=== PATIENT | female | born 1980 | race Two or more races ===

== ENCOUNTER 2018-08-29 18:02 | Emergency (ER) | payer BC ==
[2018-08-29] MEDS ORDERED: PHENAZOPYRIDINE HCL 200 MG TABLET PO ONE (18:37)
--- NOTE | 2018-08-29 18:37 | ER Document Report ---
HPI - HPI Patient complains to provider of: pain with void Time Seen by Provider: 08/29/18 18:30 Onset: Other Onset/Duration: Persistent Quality of pain: Burning Pain Level: 3 Context: Patient presents emergency department with complaints of UTI. Reports she has had extreme discomfort since Sunday. She reports pain at the end of her urine stream reports foul smell more concentrated urine. Denies vaginal discharge. Reports she has a history of UTIs and has had pyelonephritis. She was evaluated by her primary care provider Sunday they did a urine specimen but sent off a urine culture because the UA looked okay. She reports she has been taking cranberry pills Motrin and nothing is helping with the pain, she tried to call her primary care provider this week but was unsuccessful. She reports they are referring her to a urologist. She reports she used to be on Macrobid for chronic UTIs after she had sex. She denies fever diarrhea but reports some vomiting last week. None recently.. Associated Symptoms: None Exacerbated by: Other - voiding Relieved by: Denies Similar symptoms previously: Yes Recently seen / treated by doctor: Yes - REPRODUCTIVE Reproductive: DENIES: : Past Medical History - General Information source: Patient Last Menstrual Period: 2012 - Social History Smoking Status: Current Every Day Smoker Cigarette use (# per day): Yes Frequency of alcohol use: Occasional Drug Abuse: None Family History: None Patient has suicidal ideation: No Patient has homicidal ideation: No - Past Medical History Cardiac Medical History: Denies: Hx Coronary Artery Disease, Hx Heart Attack, Hx Hypertension Pulmonary Medical History: Denies: Hx Asthma, Hx Bronchitis, Hx COPD, Hx Pneumonia Neurological Medical History: Denies: Hx Cerebrovascular Accident, Hx Seizures Renal/ Medical History: Reports: Other - pyelonephritis Musculoskeletal Medical History: Denies Hx Arthritis Past Surgical History: Reports: Hx Breast Surgery, Hx Gynecologic Surgery - LEEP, Other - tummy tuck - Immunizations Hx Diphtheria, Pertussis, Tetanus Vaccination: Yes Vertical Provider Document - CONSTITUTIONAL Agree With Documented VS: Yes Exam Limitations: No Limitations General Appearance: WD/WN, No Apparent Distress - INFECTION CONTROL TRAVEL OUTSIDE OF THE [place] IN LAST 30 DAYS: No - HEENT HEENT: Atraumatic, Normocephalic - NECK Neck: Normal Inspection, Supple. negative: Lymphadenopathy-Right - RESPIRATORY Respiratory: Breath Sounds Normal, No Respiratory Distress - CARDIOVASCULAR Cardiovascular: Regular Rate, Regular Rhythm - GI/ABDOMEN Gastrointestinal: Abdomen Soft, Abdomen Non-Tender - BACK Back: Normal Inspection. negative: CVA Tenderness-Right, CVA Tenderness-Left - MUSCULOSKELETAL/EXTREMETIES Musculoskeletal/Extremeties: ZULEYMA WELLS - NEURO Level of Consciousness: Awake, Alert, Appropriate Motor/Sensory: No Motor Deficit - DERM Integumentary: Warm, Dry Course - Re-evaluation Re-evalutation: 08/29/18 19:11 UA with positive leukocytes. Will treat with Macrobid and Pyridium. Patient instructed on urine culture pending. Instructed to follow-up with the primary care and urology as scheduled. She verbalized understanding all instructions. Dictation of this chart was performed using voice recognition software; therefore, there may be some unintended grammatical errors. Discharge - Discharge Clinical Impression: Pain on voiding UTI (urinary tract infection) Qualifiers: Urinary tract infection type: site unspecified Hematuria presence: with hematuria Qualified Code(s): N39.0 - Urinary tract infection, site not specified Condition: Stable Disposition: HOME, SELF-CARE Instructions: Nitrofurantoin ([facility]), Urinary Anesthetic Agent ([facility]), Urinary Tract Infection ([facility]) Additional Instructions: *You have been evaluated for pain while voiding, UTI *Take medication as prescribed *Push fluids *Follow up with your primary care provider within one week for recheck *Plan urine recheck in one week *Return to ED for worsening condition, changes, needs Prescriptions: Nitrofurantoin/Nitrofuran Mac [Macrobid 100 mg Capsule] 100 mg PO BID #20 capsule Phenazopyridine HCl [Pyridium 200 mg Tablet] 200 mg PO TID #15 tablet Referrals: JOSE LUIS ANDRADE, ODETTE [NURSE PRACTITIONER] - Follow up as needed
[2018-08-29 18:49] LABS: APPEARANCE,URINE CLOUDY; BILIRUBIN,URINE NEGATIVE (NEGATIVE); COLOR,URINE YELLOW; GLUCOSE, URINE NEGATIVE (NEGATIVE); KETONES,URINE NEGATIVE (NEGATIVE); LEUKOCYTE ESTERASE,URINE LARGE (NEGATIVE); NITRITE,URINE NEGATIVE (NEGATIVE); PROTEIN,URINE 30 mg/dL (NEGATIVE); URINE SPECIFIC GRAVITY 1.016; UROBILINOGEN,URINE NEGATIVE mg/dL (<2.0)
[2018-08-29] MEDS ORDERED: NITROFURANTOIN MONOHYD/M-CRYST 100 MG CAPSULE PO ONE (19:12)
== END 2018-08-29 19:45 | disposition home or self-care (01) ==
LOC: ER 18:02
DX: N39.0 Urinary tract infection, site not specified (principal); R30.0 Dysuria; F17.210 Nicotine dependence, cigarettes, uncomplicated
CPT/HCPCS: 99283; 87086; 81025; 87088; 81001; 87186; J3490; J8499

== ENCOUNTER 2019-08-03 05:21 | Emergency (ER) | payer BC ==
[2019-08-03 06:45] LABS: APPEARANCE,URINE CLEAR; BILIRUBIN,URINE NEGATIVE (NEGATIVE); COLOR,URINE YELLOW; GLUCOSE, URINE NEGATIVE (NEGATIVE); KETONES,URINE NEGATIVE (NEGATIVE); LEUKOCYTE ESTERASE,URINE NEGATIVE (NEGATIVE); NITRITE,URINE NEGATIVE (NEGATIVE); PROTEIN,URINE NEGATIVE (NEGATIVE); URINE SPECIFIC GRAVITY 1.016; UROBILINOGEN,URINE NEGATIVE mg/dL (<2.0)
--- NOTE | 2019-08-03 08:04 | ER Document Report ---
Entered by SHAHANA HEBERT SCRIBE 08/03/19 0701 Acting as scribe for:CARLOS SCHWARTZ MD ED General - General Chief Complaint: Urinary Frequency Stated Complaint: URINARY COMPLAINT Time Seen by Provider: 08/03/19 06:10 Primary Care Provider: KATH HOUSER MD [Primary Care Provider] - Follow up as needed Information source: Patient Notes: This 39-year-old female presents to the emergency department with a chief complaint of a possible UTI that began two days ago. Patient reports burning, dysuria and frequency. Patient states that she frequently gets UTIs after she had an abscess on her left kidney. Patient said that she has been drinking a lot more water than she usually does lately. Patient also mentions a rash that began on her right breast. Patient explains that she recently got her nipples pierced and went to the beach earlier last week. Patient said that later in the day, she felt associated pain. Patient said that next she noticed a rash and was getting progressively worse throughout the week. Patient said that she believes it has now spread to her underarm. Patient denies fever, chills, diarrhea, nausea and vomiting. TRAVEL OUTSIDE OF THE [place] IN LAST 30 DAYS: No - Related Data Allergies/Adverse Reactions: cephalexin monohydrate [From Keflex] Allergy (Verified 08/09/11 12:16) codeine [Codeine] Allergy (Verified 08/09/11 12:16) latex [Latex] Allergy (Verified 08/09/11 12:16) levofloxacin [From Levaquin] Allergy (Verified 08/09/11 12:16) Penicillins Allergy (Verified 08/09/11 12:16) sulfamethoxazole [From Bactrim] Allergy (Verified 08/09/11 12:16) trimethoprim [From Bactrim] Allergy (Verified 08/09/11 12:16) Past Medical History - General Information source: Patient - Social History Smoking Status: Current Every Day Smoker Cigarette use (# per day): Yes Chew tobacco use (# tins/day): No Frequency of alcohol use: Occasional Drug Abuse: None Lives with: Family Family History: None Patient has homicidal ideation: No Psychiatric Medical History: Reports: Hx Attention Deficit Hyperactivity Disorder, Hx Depression Past Surgical History: Reports: Hx Abdominal Surgery - tummy tuck, Hx Appendectomy, Hx Breast Surgery, Hx Gynecologic Surgery - LEEP, Hx Oral Surgery - Immunizations Hx Diphtheria, Pertussis, Tetanus Vaccination: Yes Review of Systems - Review of Systems Constitutional: See HPI. denies: Chills, Fever EENT: No symptoms reported Cardiovascular: No symptoms reported Respiratory: No symptoms reported Gastrointestinal: See HPI. denies: Diarrhea, Nausea, Vomiting Genitourinary: See HPI, Burning, Dysuria, Frequency Female Genitourinary: No symptoms reported Musculoskeletal: No symptoms reported Skin: See HPI, Rash Hematologic/Lymphatic: No symptoms reported Neurological/Psychological: No symptoms reported -: Yes All other systems reviewed and negative Physical Exam - Vital signs Vitals: Temp Pulse Resp BP Pulse Ox 97.9 F 70 18 128/75 H 100 08/03/19 05:32 08/03/19 05:32 08/03/19 05:32 08/03/19 05:32 08/03/19 05:32 - Notes Notes: Physical Exam: General: Alert, appears well. HEENT: Normocephalic. Atraumatic. PERRL. Extraocular movements intact. Oropharynx clear. Neck: Supple. Non-tender. Respiratory: No respiratory distress. Clear and equal breath sounds bilaterally. Cardiovascular: Regular rate and rhythm. Abdominal: Normal Inspection. Non-tender. No distension. Normal Bowel Sounds. Back: No gross abnormalities. Extremities: Moves all four extremities. Upper extremities: Normal inspection. Normal ROM. Lower extremities: Normal inspection. No edema. Normal ROM. Neurological: Normal cognition. AAOx4. Normal speech. Psychological: Normal affect. Normal Mood. Skin: Warm. Dry. Normal color. On the right breast, there is erythema on the medial and lateral aspect from 3 o'clock to 9 o'clock. Warm to the touch and no drainage noted. Nipples are pierced with metallic studs bilaterally. Tenderness to palpation to axillary. No lymphogenic spread appreciated. Course - Re-evaluation Re-evalutation: 08/03/19 07:57 Patient resting comfortably not showing any signs of distress. 08/03/19 07:57 Discussed with patient that urinalysis was not very convincing of a urinary t ract infection despite the number of complaints she has sounds similar to urinary tract infection signs and symptoms. Inasmuch as patient reports she has recurrent urinary tract infections I am culturing the urine as well as placing patient on Bactrim double strength 1 tablet twice a day. I chose this particular antibiotic inasmuch as patient has cellulitis of her right breast and I am concerned about a MRSA infection. Therefore patient should improve both urinary tract infection signs and symptoms as well as cellulitis of her right breast. - Vital Signs Vital signs: Temp Pulse Resp BP Pulse Ox 97.9 F 70 18 128/75 H 100 08/03/19 05:50 08/03/19 05:32 08/03/19 05:32 08/03/19 05:32 08/03/19 05:32 - Laboratory Laboratory results interpreted by me: 08/03/19 05:37 Urine Blood SMALL H 08/03/19 07:57 Urinalysis shows blood small amount present in urine otherwise negative nitrite negative leukocyte esterase. Discharge - Discharge Clinical Impression: Urinary tract infection, Cellulitis of right breast Condition: Stable Disposition: HOME, SELF-CARE Instructions: Urinary Tract Infection ([facility]), Trimethoprim-Sulfa ([facility]) Additional Instructions: Urinary Tract Infection Your evaluation indicates that you have a urinary tract infection. This is due to germs growing in the bladder. This is a common problem. This infection usually responds quickly to antibiotics. Your antibiotic should be taken exactly as prescribed. Drink plenty of fluids -- three to four quarts a day. Occasionally, a bladder anesthetic will be prescribed to help stop the feeling of urgency until the antibiotic has a chance to clear the infection. This may cause your urine to be dark orange. Certain urine infections require a culture. If the doctor obtained a culture, the results will be back in two days. You should call to see if a change in treatment is needed. A repeat urinalysis after you finish treatment is often recommended. The physician will let you know if further testing is required. Call the doctor if you develop fever, chills, flank pain, inability to urinate, or blood in the urine. Cellulitis You have an infection of your skin and underlying soft tissues called cellulitis. This is due to bacteria, which can enter through any break in the skin, or even through an irritated hair follicle. Untreated, cellulitis will usually worsen. Antibiotics are required. Usually, warm packs or warm soaks, and elevation of the infected area are recommended. You should start getting better within 24 to 36 hours. Most infections respond quickly to the right medication. Follow-up care is important, however, to check for abscess (boil) formation, unsuspected foreign body, or resistant infection. If you develop fever, chills, or if the area of infection is becoming rapidly more swollen or painful, call the doctor at once. Prescriptions: Sulfamethoxazole/Trimethoprim [Bactrim Ds Tablet] 1 tab PO BID 10 Days #20 tablet Fluconazole [Diflucan] 150 mg PO ASDIR 7 Days #2 tablet Referrals: KATH HOUSER MD [Primary Care Provider] - Follow up as needed I personally performed the services described in the documentation, reviewed and edited the documentation which was dictated to the scribe in my presence, and it accurately records my words and actions.
[2019-08-03 09:10] VITALS: BP 114/82
== END 2019-08-03 09:10 | disposition home or self-care (01) ==
LOC: ER 05:21
DX: N39.0 Urinary tract infection, site not specified (principal); R31.9 Hematuria, unspecified; N61.0 Mastitis without abscess; F17.210 Nicotine dependence, cigarettes, uncomplicated; Z88.1 Allergy status to other antibiotic agents; Z88.6 Allergy status to analgesic agent; Z88.5 Allergy status to narcotic agent; Z91.040 Latex allergy status; Z88.0 Allergy status to penicillin
CPT/HCPCS: 36415; 81001; 87086; 99283

== ENCOUNTER 2019-11-15 11:28 | Emergency (ER) | payer BC ==
[2019-11-15] MEDS ORDERED: NORMAL SALINE 500 ML IV ONE (11:51)
--- NOTE | 2019-11-15 11:58 | ER Document Report ---
ED General - General Chief Complaint: Flank Pain Stated Complaint: RIGHT FLANK PAIN,FEVER,CHILLS Time Seen by Provider: 11/15/19 11:51 Primary Care Provider: KATH HOUSER MD [Primary Care Provider] - Follow up as needed NAHUM REYES MD [ACTIVE STAFF] - Follow up as needed Mode of Arrival: Ambulatory Information source: Patient TRAVEL OUTSIDE OF THE [place] IN LAST 30 DAYS: No - HPI Notes: 39-year-old female with a history of pyelonephritis, UTIs presents emergency room for complaints of right flank, right upper quadrant and right lower quadrant abdominal pain that started 4 days ago with nausea and. Patient states that she was positive for COVID on October 30, 2019. Patient states that she still has been experiencing shortness of breath since the . patient reports she is not having any nausea vomiting or diarrhea. Reports that pain has been constant over the last 4 days. Patient was treated for UTI and was on 10-day therapy of Macrobid, she was still having dysuria and her doctor called her and Bactrim, told her she is still having pain after the fourth day of taking Bactrim to come to the emergency room for further evaluation. Patient states she has not had a period in years due to having ablation. Denies fevers, chills, chest pain,palpitations, shortness of breath, dyspnea, nausea, vomiting, diarrhea, blurred vision, double vision, loss of vision, speech changes, LH, dizziness, syncope, headaches, wheezing, ST, URI, neck pain, weakness, bowel or bladder dysfunction, saddle anesthesia, numbness or tingling in bilateral upper or lower extremities equally, muscle paralysis, weakness in bilateral upper or lower extremities equally or rash. Denies IV drug use. MEDICATIONS: I agree with the patient medications as charted by the RN. ALLERGIES: I agree with the allergies as charted by the RN. PAST MEDICAL HISTORY/PAST SURGICAL HISTORY: Reviewed and agree as charted by RN. SOCIAL HISTORY: Reviewed and agree as charted by RN. FAMILY HISTORY: No significant familial comorbid conditions directly related to patient complaint EXAM: Reviewed vital signs as charted by RN. REVIEW OF SYSTEMS:reviewed vital signs by RN CONSTITUTIONAL : Denies fever, chills, or sweats. Denies recent illness. EENT: Denies eye, ear, throat, or mouth pain or symptoms. Denies nasal or sinus congestion or discharge. Denies throat, tongue, or mouth swelling or difficulty swallowing. CARDIOVASCULAR: Denies chest pain. Denies palpitations or racing or irregular heart beat. Denies ankle edema. RESPIRATORY: Denies cough, cold, or chest congestion. Denies shortness of breath, difficulty breathing, or wheezing. GASTROINTESTINAL: reports abdominal pain. denies abdominal distention. Denies nausea, vomiting, or diarrhea. Denies blood in vomitus, stools, or per rectum. Denies black, tarry stools. Denies constipation. GENITOURINARY: Denies difficulty urinating, painful urination, burning, frequency, blood in urine, or discharge. FEMALE GENITOURINARY: Denies vaginal bleeding, heavy or abnormal periods, irregular periods. Denies vaginal discharge or odor. MUSCULOSKELETAL: Denies back or neck pain or stiffness. Denies joint pain or swelling. SKIN: Denies rash, lesions or sores. HEMATOLOGIC : Denies easy bruising or bleeding. LYMPHATIC: Denies swollen, enlarged glands. NEUROLOGICAL: Denies confusion or altered mental status. Denies passing out or loss of consciousness. Denies dizziness or lightheadedness. Denies headache. Denies weakness or paralysis or loss of use of either side. Denies problems with gait or speech. Denies sensory loss, numbness, or tingling. Denies seizures. PSYCHIATRIC: Denies anxiety or stress. Denies depression, suicidal ideation, or homicidal ideation. ALL OTHER SYSTEMS REVIEWED AND NEGATIVE. PHYSICAL EXAMINATION: GENERAL: Well-appearing, well-nourished and in no acute distress. HEAD: Atraumatic, normocephalic. EYES: Pupils equal round and reactive to light, extraocular movements intact, conjunctiva are normal. ENT: Nares patent, oropharynx clear without exudates. Moist mucous membranes. NECK: Normal range of motion, supple without lymphadenopathy LUNGS: Breath sounds clear to auscultation bilaterally and equal. No wheezes rales or rhonchi. HEART: Regular rate and rhythm without murmurs ABDOMEN: Soft, nondistended abdomen. Right upper quadrant, right lower quadrant, right CVA tenderness appreciated no guarding, no rebound. No masses appreciated. No left CVA tenderness appreciated Female : deferred Musculoskeletal: Normal range of motion, no pitting or edema. No cyanosis. NEUROLOGICAL: Cranial nerves grossly intact. Normal speech, normal gait. Normal sensory, motor exams PSYCH: Normal mood, normal affect. SKIN: Warm, Dry, normal turgor, no rashes or lesions noted. Dictation was performed using [employer] voice recognition software - Related Data Allergies/Adverse Reactions: cephalexin monohydrate [From Keflex] Allergy (Verified 11/15/19 12:36) codeine [Codeine] Allergy (Verified 11/15/19 12:36) latex [Latex] Allergy (Verified 11/15/19 12:36) levofloxacin [From Levaquin] Allergy (Verified 11/15/19 12:36) Penicillins Allergy (Verified 11/15/19 12:36) sulfamethoxazole [From Bactrim] Allergy (Verified 11/15/19 12:36) trimethoprim [From Bactrim] Allergy (Verified 11/15/19 12:36) Past Medical History - General Information source: Patient - Social History Smoking Status: Unknown if Ever Smoked Family History: None - Past Medical History Cardiac Medical History: Denies: Hx Coronary Artery Disease, Hx Heart Attack, Hx Hypertension Pulmonary Medical History: Denies: Hx Asthma, Hx Bronchitis, Hx COPD, Hx Pneumonia Neurological Medical History: Denies: Hx Cerebrovascular Accident, Hx Seizures Renal/ Medical History: Denies: Hx Peritoneal Dialysis Musculoskeletal Medical History: Denies Hx Arthritis Psychiatric Medical History: Reports: Hx Attention Deficit Hyperactivity Disorder, Hx Depression Past Surgical History: Reports: Hx Abdominal Surgery - tummy tuck, Hx Appendectomy, Hx Breast Surgery, Hx Gynecologic Surgery - LEEP, Hx Oral Surgery, Other - tummy tuck - Immunizations Hx Diphtheria, Pertussis, Tetanus Vaccination: Yes Physical Exam - Vital signs Vitals: Temp Pulse Resp BP Pulse Ox 98.0 F 118 H 20 115/79 99 11/15/19 11:46 11/15/19 11:46 11/15/19 11:46 11/15/19 11:46 11/15/19 11:46 Course - Re-evaluation Re-evalutation: 11/15/19 17:05 Afebrile vitals stable no distress . Heart rate down to 80s. I suspect her initial heart rate was captured because she did tell me in the room that she did feel little anxious. Throughout the duration of her stay her heart rate rem ained less than 90s. CT abdomen pelvis negative for any acute findings, chest x- ray unremarkable. Urinalysis does show moderate leukesterase with hematuria. Patient has been taking Bactrim for at least a week and a half, she states she does have chronic UTIs. Will obtain a urine culture and switch her to doxycycline 100 mg twice daily for the next 10 days. Advised to follow-up with a urologist as well as her primary care doctor. Patient received IV fluids and morphine and Zofran for her pain. Patient states she feels short of breath but with the PERC rule, patient does not qualify for a d-dimer, heart rate less than 100, age less than 50, pulse ox is 100, no general leg swelling, no hemoptysis, no recent surgery or trauma, no prior history of DVT or PE, patient is not on any hormone use because she did have an ablation done. Patient states she has had this pain for over 4 days. We will have her follow-up with a sash installer and start her on omeprazole. Patient did test positive for COVID on October 29, she has not had any culture testing since then. She does not want any, testing at this time. After performing a Medical Screening Examination, I estimate there is LOW risk for ACUTE APPENDICITIS, BOWEL OBSTRUCTION, ACUTE CHOLECYSTITIS, PERFORATED DIVERTICULITIS, INCARCERATED HERNIA, PANCREATITIS, PELVIC INFLAMMATORY DISEASE, PERFORATED ULCER, ECTOPIC , or TUBO-OVARIAN ABSCESS, thus I consider the discharge disposition reasonable. Also, there is no evidence or peritonitis, sepsis, or toxicity. I have reevaluated this patient multiple times and no significant life threatening changes are noted. The patient and I have discussed the diagnosis and risks, and we agree with discharging home with close follow-up with the understanding that symptoms and presentations can change. We also discussed returning to the Emergency Department immediately if new or worsening symptoms occur. We have discussed the symptoms which are most concerning (e.g., bloody stool, fever, changing or worsening pain, vomiting) that necessitate immediate return. 11/15/19 17:09 - Vital Signs Vital signs: Temp Pulse Resp BP Pulse Ox 98.0 F 118 H 17 102/63 100 11/15/19 15:17 11/15/19 11:46 11/15/19 15:17 11/15/19 15:17 11/15/19 15:17 - Laboratory Result Diagrams: 11/15/19 12:05 11/15/19 12:05 Laboratory results interpreted by me: 11/15/19 11/15/19 11/15/19 12:05 12:05 12:27 Hgb 15.8 H Lymph % (Auto) 9.9 L Eos % (Auto) 6.4 H Sodium 133.9 L AST 57 H ALT 59 H Urine Protein 30 H Urine Blood SMALL H Ur Leukocyte Esterase LARGE H Discharge - Discharge Clinical Impression: UTI (urinary tract infection), Abdominal pain, COVID-19 Condition: Stable Disposition: HOME, SELF-CARE Instructions: COVID-19 Guidance for Persons Under Investigation, Abdominal Pain ([facility]), Doxycycline ([facility]), Low-Fat Diet ([facility]), Oral Narcotic Medication ([facility]), T oradol Injection ([facility]), Urinary Tract Infection ([facility]) Additional Instructions: Continue your Bactrim twice a day as directed. You have a urine culture pending. CT of your abdomen and pelvis was completely normal as well as her chest x-ray. You were given some IV fluids today. All of your lab work was normal aside from you having a UTI. I did give you a referral to a sash installer for further evaluation. Please follow COVID pandemic protocol Prescriptions: Doxycycline Monohydrate 100 mg PO BID #20 tablet Omeprazole 20 mg PO DAILY #20 capsule.dr Forms: Return to Work Referrals: KATH HOUSER MD [Primary Care Provider] - Follow up as needed NAHUM REYES MD [ACTIVE STAFF] - Follow up as needed
[2019-11-15 12:28] LABS: ABSOLUTE LYMPHOCYTES (AUTO) 0.7 10^3/uL (0.5-4.7); ABSOLUTE MONOCYTES (AUTO) 0.5 10^3/uL (0.1-1.4); HEMOGLOBIN 15.8 g/dL (12.0-15.5); TOTAL CELLS COUNTED % (AUTO) 100 %
[2019-11-15 12:39] LABS: ABSOLUTE EOSINOPHILS # (AUTO) 0.4 10^3/uL (0.0-0.6); ABSOLUTE NEUT (AUTO) 5.4 10^3/uL (1.7-8.2); BASOPHILS % (AUTO) 0.4 % (0-2); EOSINOPHILS % (AUTO) 6.4 % (0-6); HEMATOCRIT 44.7 % (36.0-47.0); LYMPHOCYTES % (AUTO) 9.9 % (13-45); MEAN CORPUSCULAR HEMOGLOBIN 32.6 pg (27.0-33.4); MEAN CORPUSCULAR HGB CONC 35.4 g/dL (32.0-36.0); MEAN CORPUSCULAR VOLUME 92 fl (80-97); MONOCYTES % (AUTO) 6.6 % (3-13); PLATELET COUNT 263 10^3/uL (150-450); RED BLOOD COUNT 4.85 10^6/uL (3.72-5.28); RED CELL DISTRIBUTION WIDTH 13.2 % (11.5-14.0); SEGMENTED NEUTROPHILS % (AUTO) 76.7 % (42-78)
[2019-11-15 12:48] LABS: ALBUMIN 4.7 g/dL (3.5-5.0); ALKALINE PHOSPHATASE 69 U/L (38-126); ANION GAP 9 (5-19); ASPARTATE AMINO TRANSFERASE 57 U/L (14-36); BILIRUBIN,DIRECT 0.2 mg/dL (0.0-0.4); BILIRUBIN,TOTAL 0.6 mg/dL (0.2-1.3); BLOOD UREA NITROGEN 20 mg/dL (7-20); CALCIUM 9.5 mg/dL (8.4-10.2); CARBON DIOXIDE 25 mmol/L (22-30); CHLORIDE 100 mmol/L (98-107); GLUCOSE 100 mg/dL (75-110); TOTAL PROTEIN 7.9 g/dL (6.3-8.2)
[2019-11-15] MEDS ORDERED: MORPHINE SULFATE 10 MG/ML INJ IV ONE ×2 (12:50→15:46)
[2019-11-15] MEDS ORDERED: ONDANSETRON HCL INJ/PF 4 MG/2 ML SDV IV ONE ×2 (12:51→15:47)
[2019-11-15 13:00] LABS: POTASSIUM 4.5 mmol/L (3.6-5.0)
[2019-11-15 13:11] LABS: APPEARANCE,URINE CLOUDY; BILIRUBIN,URINE NEGATIVE (NEGATIVE); COLOR,URINE YELLOW; GLUCOSE, URINE NEGATIVE (NEGATIVE); KETONES,URINE NEGATIVE (NEGATIVE); LEUKOCYTE ESTERASE,URINE LARGE (NEGATIVE); NITRITE,URINE NEGATIVE (NEGATIVE); PROTEIN,URINE 30 mg/dL (NEGATIVE); UROBILINOGEN,URINE NEGATIVE mg/dL (<2.0)
--- NOTE | 2019-11-15 13:17 | RADIOLOGY REPORT (SQ) ---
EXAM DESCRIPTION: CHEST SINGLE VIEW IMAGES COMPLETED DATE/TIME: 11/15/2019 11:48 am REASON FOR STUDY: sob COMPARISON: None. EXAM PARAMETERS: NUMBER OF VIEWS: One view. TECHNIQUE: Single frontal radiographic view of the chest acquired. RADIATION DOSE: NA LIMITATIONS: None. FINDINGS: LUNGS AND PLEURA: No opacities, masses or pneumothorax. No pleural effusion. MEDIASTINUM AND HILAR STRUCTURES: No masses. Contour normal. HEART AND VASCULAR STRUCTURES: Heart normal in size. Normal vasculature. BONES: No acute findings. HARDWARE: None in the chest. OTHER: No other significant finding. IMPRESSION: NO ACUTE RADIOGRAPHIC FINDING IN THE CHEST. TECHNICAL DOCUMENTATION: JOB ID: [id number] 2010 [employer]- All Rights Reserved Reading location - IP/workstation name: [email or web address]
--- NOTE | 2019-11-15 15:37 | RADIOLOGY REPORT (SQ) ---
EXAM DESCRIPTION: CT ABD/PELVIS WITH IV ONLY IMAGES COMPLETED DATE/TIME: 11/15/2019 3:09 pm REASON FOR STUDY: RUQ, RLQ, R flank pain x 4days COMPARISON: None. TECHNIQUE: CT scan of the abdomen and pelvis performed using helical scanning technique with dynamic intravenous contrast injection. No oral contrast. Images reviewed with lung, soft tissue, and bone windows. Reconstructed coronal and sagittal MPR images reviewed. Delayed images for evaluation of the urinary system also acquired. All images stored on PACS. All CT scanners at this facility use dose modulation, iterative reconstruction, and/or weight based d osing when appropriate to reduce radiation dose to as low as reasonably achievable (ALARA). [facility]: Dose Right [facility]: CareDose [facility]: Dose Right [facility]: Teradose 4D [facility]: Smile CONTRAST TYPE AND DOSE: contrast/concentration: Isovue 350.00 mmol/ml; Total Contrast Delivered: 78. 0 ml; Total Saline Delivered: 37.0 ml RENAL FUNCTION: None required. The patient is less than 50 years old. RADIATION DOSE: CT Rad equipment meets quality standard of care and radiation dose reduction techniq ues were employed. CTDIvol: 5.6 - 7.5 mGy. DLP: 684 mGy-cm.. LIMITATIONS: None. FINDINGS: LOWER CHEST: No significant findings. No nodules or infiltrates. LIVER: Normal size. No masses. No dilated ducts. SPLEEN: Normal size. No focal lesions. PANCREAS: No masses. No significant calcifications. No adjacent inflammation or peripancreatic fluid collections. Pancreatic duct not dilated. GALLBLADDER: No identified stones by CT criteria. No inflammatory changes to suggest cholecystitis. ADRENAL GLANDS: No significant masses or asymmetry. RIGHT KIDNEY AND URETER: No solid masses. No significant calcification. No hydronephrosis or hydroure ter. LEFT KIDNEY AND URETER: No solid masses. No significant calcification. No hydronephrosis or hydrouret er. AORTA AND VESSELS: No aneurysm. No dissection. Renal arteries, SMA, celiac without stenosis. RETROPERITONEUM: No retroperitoneal adenopathy, hemorrhage or masses. BOWEL AND PERITONEAL CAVITY: No masses or inflammatory changes. No free fluid or peritoneal masses. APPENDIX: Surgically absent. PELVIS: No mass. No free fluid. Normal bladder. ABDOMINAL WALL: No masses. No hernias. BONES: No significant or acute findings. OTHER: No other significant finding. IMPRESSION: No acute inflammatory changes in the abdomen or pelvis. TECHNICAL DOCUMENTATION: JOB ID: [id number] Quality ID # [id number]: Final reports with documentation of one or more dose reduction techniques (e.g., Au tomated exposure control, adjustment of the mA and/or kV according to patient size, use of iterative reconstruction technique) 2010 [employer]- All Rights Reserved Reading location - IP/workstation name: [email or web address]PERATORUNC [email or web address]
[2019-11-15 15:45] VITALS: BP 102/63
[2019-11-15] MEDS ORDERED: HYDROCODONE/ACETAMINOPHEN 5-325 MG (6 TAB/ER DISP) PO PRN (15:46)
--- NOTE | 2019-11-16 20:21 | EKG REPORT ---
SEVERITY:- BORDERLINE ECG - SINUS RHYTHM PROBABLE LEFT ATRIAL ABNORMALITY : Confirmed by: London Carnes 16-Nov-2019 20:20:46
== END 2019-11-15 16:29 | disposition home or self-care (01) ==
LOC: ER 11:28
DX: U07.1 COVID-19 (principal); N39.0 Urinary tract infection, site not specified; R50.9 Fever, unspecified; R10.9 Unspecified abdominal pain
CPT/HCPCS: 93005; 96376; 99285; 96361; 96374; 96375; 36415; 87040; 87086; 83605; 83690; 85025; 81025; 87077; 87088; 80053; 81001; 87186; 87150 ×26; 71045; 74177; 93010; J2270; J2405; J7040